=== PATIENT | female | born 1945 | race Caucasian/White ===

== ENCOUNTER → 2017-02-16 | Outpatient (REF) | payer MEDICARE ==
[2017-02-16 13:15] LABS: ALBUMIN 3.7 GM/DL (3.2-5.2); ALBUMIN/GLOBULIN RATIO 1.12 (1.00-1.93); BILIRUBIN,TOTAL 0.4 MG/DL (0.2-1.0); CALCIUM LEVEL 8.5 MG/DL (8.8-10.2); CREATININE FOR GFR 0.98 MG/DL (0.55-1.02); GLOMERULAR FILTRATION RATE 59.6 (>39); POTASSIUM SERUM 4.6 MEQ/L (3.5-5.1)
== END ==
LOC: M SFHCADAM 07:48
PROVIDERS: ATTEND Physician Assistant Medical
DX: E78.2 Mixed hyperlipidemia (principal); E03.9 Hypothyroidism, unspecified

== ENCOUNTER → 2018-07-26 | Outpatient (REF) | payer MEDICARE ==
[2018-07-26 13:55] LABS: BASO # 0.1 10^3/uL (0.0-0.2); BASO % 0.8 % (0.0-1.0); EOS # 0.6 10^3/uL (0.0-0.50); EOS % 7.4 % (0.0-3.0); HEMATOCRIT 42.3 % (36.0-47.0); HEMOGLOBIN 13.7 g/dl (12.0-15.5); IMMATURE GRANULOCYTE % 0.1 % (0-3.0); LYMPH # 2.2 10^3/uL (1.5-4.5); LYMPH % 29.7 % (24.0-44.0); MEAN CORPUSCULAR HEMOGLOBIN 29.6 pg (27.0-33.0); MEAN CORPUSCULAR HGB CONC 32.4 g/dl (32.0-36.5); MEAN CORPUSCULAR VOLUME 91.4 fl (80.0-96.0); MONO # 0.6 10^3/uL (0.0-0.8); MONO % 8.1 % (0.0-5.0); NEUTROPHILS # 4.1 10^3/uL (1.8-7.7); NEUTROPHILS % 53.9 % (36.0-66.0); PLATELET COUNT, AUTOMATED 304 10^3/uL (150-450); RED BLOOD COUNT 4.63 10^6/uL (4.00-5.40); RED CELL DISTRIBUTION WIDTH 12.8 % (11.5-14.5); WHITE BLOOD COUNT 7.6 10^3/uL (4.0-10.0)
[2018-07-26 19:51] LABS: ALBUMIN 3.6 GM/DL (3.2-5.2); ALBUMIN/GLOBULIN RATIO 0.97 (1.00-1.93); ALKALINE PHOSPHATASE 111 U/L (45-117); ALT/SGPT 22 U/L (12-78); ANION GAP 8 MEQ/L (8-16); AST/SGOT 15 U/L (7-37); BILIRUBIN,TOTAL 0.5 MG/DL (0.2-1.0); BLOOD UREA NITROGEN 19 MG/DL (7-18); CALCIUM LEVEL 9.2 MG/DL (8.8-10.2); CARBON DIOXIDE LEVEL 30 MEQ/L (21-32); CHLORIDE LEVEL 103 MEQ/L (98-107); CHOLESTEROL LEVEL 246 MG/DL (<200); CHOLESTEROL RISK RATIO 4.241 (<5); CREATININE FOR GFR 0.94 MG/DL (0.55-1.30); FREE T4 0.89 NG/DL (0.76-1.46); GLOMERULAR FILTRATION RATE > 60.0 (>39); GLUCOSE, FASTING 80 MG/DL (70-100); HDL CHOLESTEROL 58 MG/DL (>40); LDL CHOLESTEROL 158 MG/DL (<100); NON-HDL-C 188 MG/DL; SODIUM LEVEL 141 MEQ/L (136-145); TOTAL PROTEIN 7.3 GM/DL (6.4-8.2); TRIGLYCERIDES LEVEL 151 MG/DL (<150)
== END ==
LOC: M SFHCADAM 08:04
DX: E78.2 Mixed hyperlipidemia (principal); E03.9 Hypothyroidism, unspecified; Z87.891 Personal history of nicotine dependence; E66.09 Other obesity due to excess calories; F41.1 Generalized anxiety disorder; I10 Essential (primary) hypertension
CPT/HCPCS: 84443

== ENCOUNTER → 2019-07-18 | Outpatient (REF) | payer MEDICARE ==
[2019-07-18 13:02] LABS: BASO # 0.1 10^3/uL (0.0-0.2); BASO % 0.7 % (0.0-1.0); EOS # 0.3 10^3/uL (0.0-0.5); EOS % 3.3 % (0.0-3.0); HEMATOCRIT 39.8 % (36.0-47.0); HEMOGLOBIN 12.9 g/dl (12.0-15.5); LYMPH # 2.1 10^3/uL (1.5-5.0); LYMPH % 28.3 % (24.0-44.0); MEAN CORPUSCULAR HEMOGLOBIN 29.7 pg (27.0-33.0); MEAN CORPUSCULAR HGB CONC 32.4 g/dl (32.0-36.5); MEAN CORPUSCULAR VOLUME 91.7 fl (80.0-96.0); MONO # 0.5 10^3/uL (0.0-0.8); MONO % 6.4 % (0.0-5.0); NEUTROPHILS # 4.6 10^3/uL (1.5-8.5); NEUTROPHILS % 60.9 % (36.0-66.0); PLATELET COUNT, AUTOMATED 305 10^3/uL (150-450); RED BLOOD COUNT 4.34 10^6/uL (4.00-5.40); WHITE BLOOD COUNT 7.5 10^3/uL (4.0-10.0)
[2019-07-18 13:37] LABS: ALBUMIN 3.9 GM/DL (3.2-5.2); BILIRUBIN,TOTAL 0.5 MG/DL (0.2-1.0); CALCIUM LEVEL 9.3 MG/DL (8.8-10.2); CHOLESTEROL RISK RATIO 3.582 (<5); CREATININE FOR GFR 1.4 MG/DL (0.55-1.30); FREE T4 1.06 NG/DL (0.76-1.46); GLOMERULAR FILTRATION RATE 39.2 (>39); POTASSIUM SERUM 4.3 MEQ/L (3.5-5.1); THYROID STIMULATING HORMONE 3.58 uIU/ML (0.358-3.740); TOTAL PROTEIN 7.7 GM/DL (6.4-8.2)
== END ==
LOC: M SFHCADAM 07:55
PROVIDERS: ATTEND Physician Assistant Medical
DX: E78.2 Mixed hyperlipidemia (principal); E03.9 Hypothyroidism, unspecified

== ENCOUNTER → 2019-07-25 | Outpatient (REF) | payer MEDICARE ==
[2019-07-25 12:58] LABS: CALCIUM LEVEL 9.3 MG/DL (8.8-10.2); CREATININE FOR GFR 1.43 MG/DL (0.55-1.30); GLOMERULAR FILTRATION RATE 38.3 (>39); POTASSIUM SERUM 4.8 MEQ/L (3.5-5.1)
== END ==
LOC: M SFHCADAM 08:31
PROVIDERS: ATTEND Physician Assistant Medical
DX: E78.2 Mixed hyperlipidemia (principal); N28.9 Disorder of kidney and ureter, unspecified
CPT/HCPCS: 80048; G0463

== ENCOUNTER → 2019-07-31 | Outpatient (REF) | payer MEDICARE ==
[2019-07-31 13:33] LABS: AMORPHOUS SEDIMENT SMALL (NEGATIVE); APPEARANCE, URINE CLEAR (CLEAR); BACTERIA, URINE AUTO NEGATIVE (NEGATIVE); BILIRUBIN, URINE AUTO NEGATIVE (NEGATIVE); BLOOD, URINE BLOOD 2+ (NEGATIVE); COLOR, URINE YELLOW (YELLOW); GLUCOSE, URINE (UA) AUTO NEGATIVE (NEGATIVE); KETONE, URINE AUTO NEGATIVE (NEGATIVE); LEUKOCYTE ESTERASE, URINE AUTO 1+ (NEGATIVE); NITRITE, URINE AUTO NEGATIVE (NEGATIVE); PROTEIN, URINE AUTO NEGATIVE (NEGATIVE); RBC, URINE AUTO 2 /HPF (0-3); SPECIFIC GRAVITY URINE AUTO 1.014 (1.002-1.035); SQUAMOUS EPITHELIAL CELL UR AU 1 /HPF (0-6); UROBILINOGEN, URINE AUTO 0.2 mg/dL (0.0-2.0); WBC, URINE AUTO 4 /HPF (0-3)
== END ==
LOC: M SFHCADAM 12:38
PROVIDERS: ATTEND Physician Assistant Medical
DX: N18.3 Chronic kidney disease, stage 3 (moderate) (principal); R31.29 Other microscopic hematuria

== ENCOUNTER → 2019-08-07 | Outpatient (CLI) | payer MEDICARE ==
--- NOTE | 2019-08-07 11:27 | REP ---
Renal ultrasound for evaluation of stage III chronic renal disease: There are no comparisons. The right kidney measures 10.4 x 5.0 x 5.0 cm. The left kidney measures 10.5 x 5.2 x 5.1 cm. The kidneys are normal size. Renal cortical echogenicity is normal bilaterally. There are no solid or cystic renal masses on the right on the left. There is right hydronephrosis. There is no left hydronephrosis. Bladder ultrasound: Color Doppler assessment identifies the left ureteral jet. The right ureteral jet cannot be identified. Impression: Right hydronephrosis. The right ureteral jet into the bladder cannot be identified. The findings suggest a right ureteral obstruction. Electronically Signed by Arnulfo Peres MD 08/07/2019 11:18 A
== END ==
LOC: M RAD 10:24
PROVIDERS: ATTEND Physician Assistant Medical
DX: N18.3 Chronic kidney disease, stage 3 (moderate) (principal)

== ENCOUNTER → 2019-08-10 | Outpatient (CLI) | payer MEDICARE ==
[~2019-08-10] MED LIST: HYDR1CAP25 PO; LEVO50TA5 PO; ZOCO40TA PO
[2019-08-10 13:59] LABS: CALCIUM LEVEL 9.1 MG/DL (8.8-10.2); CREATININE FOR GFR 1.35 MG/DL (0.55-1.30); GLOMERULAR FILTRATION RATE 40.9 (>39); POTASSIUM SERUM 4.4 MEQ/L (3.5-5.1)
== END ==
LOC: M SMT 09:53
PROVIDERS: ATTEND Nurse Practitioner Women's Health
DX: N13.30 Unspecified hydronephrosis (principal)
CPT/HCPCS: 36415; 80048; G0463

== ENCOUNTER → 2019-08-14 | Outpatient (CLI) | payer MEDICARE ==
[~2019-08-14] MED LIST changes: -HYDR1CAP25 PO; +ISOVUE-370 76% 100ML VIAL (Q9967) As Ordered ONE; -LEVO50TA5 PO; -ZOCO40TA PO
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
== END ==
LOC: M RAD 07:21
PROVIDERS: ATTEND Nurse Practitioner Women's Health
DX: N39.0 Urinary tract infection, site not specified (principal); N13.0 Hydronephrosis with ureteropelvic junction obstruction
CPT/HCPCS: 74178; Q9967

== ENCOUNTER → 2019-08-17 | Outpatient (REF) | payer MEDICARE ==
[~2019-08-17] MED LIST changes: +HYDR1CAP25 PO; -ISOVUE-370 76% 100ML VIAL (Q9967) As Ordered ONE; +LEVO50TA5 PO; +ZOCO40TA PO
[2019-08-17 15:12] LABS: APPEARANCE, URINE HAZY (CLEAR); BACTERIA, URINE AUTO 1+ (NEGATIVE); BILIRUBIN, URINE AUTO NEGATIVE (NEGATIVE); BLOOD, URINE BLOOD 2+ (NEGATIVE); COLOR, URINE YELLOW (YELLOW); GLUCOSE, URINE (UA) AUTO NEGATIVE (NEGATIVE); KETONE, URINE AUTO NEGATIVE (NEGATIVE); LEUKOCYTE ESTERASE, URINE AUTO 2+ (NEGATIVE); MUCUS, URINE SMALL (NEGATIVE); NITRITE, URINE AUTO NEGATIVE (NEGATIVE); PROTEIN, URINE AUTO NEGATIVE (NEGATIVE); RBC, URINE AUTO 2 /HPF (0-3); SPECIFIC GRAVITY URINE AUTO 1.004 (1.002-1.035); SQUAMOUS EPITHELIAL CELL UR AU 0 /HPF (0-6); UROBILINOGEN, URINE AUTO 0.2 mg/dL (0.0-2.0); WBC, URINE AUTO 1 /HPF (0-3)
== END ==
LOC: M SMT 12:09
PROVIDERS: ATTEND Nurse Practitioner Women's Health
DX: N39.0 Urinary tract infection, site not specified (principal); N13.30 Unspecified hydronephrosis; R19.00 Intra-abdominal and pelvic swelling, mass and lump, unspecified site
CPT/HCPCS: 81001; 87086; 88108; G0463

== ENCOUNTER → 2019-08-24 | Outpatient (REF) | payer MEDICARE ==
[2019-08-24 10:52] LABS: INR 1.02; PROTHROMBIN TIME 13.1 SECONDS (11.8-14.0)
== END ==
LOC: M LABDRWAD 09:42
PROVIDERS: ATTEND Nurse Practitioner Women's Health
DX: Z01.812 Encounter for preprocedural laboratory examination (principal); R19.00 Intra-abdominal and pelvic swelling, mass and lump, unspecified site; N13.30 Unspecified hydronephrosis

== ENCOUNTER → 2019-09-04 | Outpatient (CLI) | payer MEDICARE ==
[~2019-09-04] MED LIST changes: +LIDOCAINE 1% MDV 20ML VIAL As Ordered ONE
[2019-09-04 13:26] VITALS: BP 238/108
--- NOTE | 2019-09-04 16:58 | REP ---
CT-GUIDED RIGHT RETROPERITONEAL MASS BIOPSY The procedure was performed under the direct supervision of Dr. Osborn. 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 The risks and benefits of the procedure were explained to the patient and informed consent was obtained. The right retroperitoneal mass was localized using CT guidance. The skin was prepped and draped in a sterile fashion. 1% lidocaine was used as a local anesthetic. Using CT guidance 19/20 gauge coaxial needle biopsy system was inserted and advanced into the mass. Nine core biopsy samples were obtained and sent to lab. The patient tolerated the procedure well and there were no immediate complications. After the appropriate amount of monitored convalescence the patient was discharged from the department. Electronically Signed by TATY Shelton 09/04/2019 04:45 P Electronically Signed by Arnulfo Osborn MD 09/04/2019 04:49 P
== END ==
LOC: M IRPRO 11:39
PROVIDERS: ATTEND Nurse Practitioner Women's Health
DX: C78.6 Secondary malignant neoplasm of retroperitoneum and peritoneum (principal)

== ENCOUNTER → 2019-09-05 | Outpatient (CLI) | payer MEDICARE ==
[~2019-09-05] MED LIST changes: -LIDOCAINE 1% MDV 20ML VIAL As Ordered ONE
[2019-09-05 14:49] LABS: CREATININE FOR GFR 1.24 MG/DL (0.55-1.30); GLOMERULAR FILTRATION RATE 45.1 (>39); POTASSIUM SERUM 4.2 MEQ/L (3.5-5.1)
[2019-09-05 14:53] LABS: HEMATOCRIT 41.2 % (36.0-47.0); HEMOGLOBIN 12.8 g/dl (12.0-15.5); MEAN CORPUSCULAR HEMOGLOBIN 29.2 pg (27.0-33.0); MEAN CORPUSCULAR HGB CONC 31.1 g/dl (32.0-36.5); MEAN CORPUSCULAR VOLUME 93.8 fl (80.0-96.0); PLATELET COUNT, AUTOMATED 271 10^3/uL (150-450); RED BLOOD COUNT 4.39 10^6/uL (4.00-5.40); WHITE BLOOD COUNT 8.4 10^3/uL (4.0-10.0)
--- NOTE | 2019-09-05 15:20 | REPPI ---
Clinical: Preoperative assessment . Comparison: 01/17/2015 . Technique: PA and lateral. Findings: The mediastinum and cardiac silhouette are normal. The lung bell are clear and without acute consolidation, effusion, or pneumothorax. Lateral view demonstrates blunting to the posterior diaphragmatic recess which is nonspecific and may be secondary to positioning rather than actual pleural reaction. The skeletal structures are intact and normal. Impression: 1. No focal consolidation. 2. As above. Electronically Signed by Randy Wheeler MD 09/05/2019 10:35 A
== END ==
LOC: M PLALAB 10:11 → M PLAIMG 10:11
PROVIDERS: ATTEND Nurse Practitioner Women's Health
DX: Z01.812 Encounter for preprocedural laboratory examination (principal); R19.00 Intra-abdominal and pelvic swelling, mass and lump, unspecified site; N13.30 Unspecified hydronephrosis; N39.0 Urinary tract infection, site not specified
CPT/HCPCS: 36415; 71046; 80048; 85027; 87086; 93005; G0463

== ENCOUNTER 2019-09-13 09:06 | Day surgery (SDC) | payer MEDICARE ==
[~2019-09-13] VITALS: Ht 170.2 cm; Wt 81.2 kg
[~2019-09-13 09:06] MED LIST changes: +LR 1,000 ML IV ONE; +ceFAZolin SOD 2 GM in IV 1 EA IV ONE
[2019-09-13] MEDS ORDERED: LIDOCAINE 2% INJ 100 MG/5 ML SDV (FOR ANES.) As Ordered ONE (09:25)
[2019-09-13] MEDS ORDERED: ONDANSETRON 4MG/2ML VIAL (J2405) As Ordered ONE (09:25)
[2019-09-13] MEDS ORDERED: MIDAZOLAM INJ 2 MG/2 ML VIAL (J2250) As Ordered ONE (09:25)
[2019-09-13] MEDS ORDERED: fentaNYL 100 MCG/2 ML INJECTION (J3010) As Ordered ONE (09:25)
[2019-09-13] MEDS ORDERED: PROPOFOL 200 MG/20 ML VIAL As Ordered ONE (09:25)
[2019-09-13] MEDS ORDERED: dexameTHASONE 4 MG/ML 1ML VIAL (J1100) As Ordered ONE (09:25)
[2019-09-13] MEDS ORDERED: CONRAY-60 60% 50ML VIAL (Q9961) As Ordered ONE (10:09)
[2019-09-13] MEDS ORDERED: ACETAMINOPHEN 1000MG 100ML IV BTL (OFIRMEV) (J0131 PER 10MG) As Ordered ONE (10:46)
[2019-09-13] MEDS ORDERED: KETOROLAC 60 MG/2 ML VIAL (J1885) As Ordered ONE (10:48)
[2019-09-13] MEDS ORDERED: hydrALAZINE INJ 20 MG/ML VIAL As Ordered ONE (11:14)
[2019-09-13] MEDS ORDERED: ONDANSETRON 4MG/2ML VIAL (J2405) IV PRN (12:15)
[2019-09-13] MEDS ORDERED: LR 1,000 ML IV SCH (12:15)
[2019-09-13] MEDS ORDERED: ACETAMINOPHEN TAB 650MG DOSE (2X325MG) PO PRN (12:15)
[2019-09-13] MEDS ORDERED: fentaNYL 100 MCG/2 ML INJECTION (J3010) IV PRN (12:15)
[2019-09-13] MEDS ORDERED: PERCOCET 5MG/325MG TAB PO PRN (12:15)
[2019-09-13] MEDS ORDERED: METOCLOPRAMIDE INJ 10MG/2ML VIAL (J2765) IV PRN (12:15)
[2019-09-13 13:10] VITALS: BP 170/84
--- NOTE | 2019-09-13 13:38 | REP ---
C-ARM VIEW ABDOMEN: C-arm view of the abdomen is performed. There is a right ureteral stent. The proximal end is coiled in the right renal pelvis, which is moderately dilated with the right pelvocaliceal system partially opacified with contrast maternal. The distal end of the right ureteral stent is coiled in the urinary bladder. 1 minute 31 seconds fluoroscopy time is utilized. Unreviewed
--- NOTE | 2019-09-13 14:29 | RO ---
DATE OF PROCEDURE: 09/13/2019 PREPROCEDURE DIAGNOSIS: Right hydronephrosis. POSTPROCEDURE DIAGNOSIS: Right hydronephrosis. PROCEDURE: Cystoscopy, right ureteroscopy with balloon dilation, right retrograde pyelogram with intraoperative interpreted images, right ureteral stent placement. SURGEON: Dr. Rasta Santiago. CLAIM REP: None. ANESTHESIA: General. OPERATIVE INDICATIONS: This is a 74-year-old female who on recent CT scan was found to have a right hydronephrosis, which appeared to be due to a retroperitoneal lesion compressing the proximal right ureter. It is not possible to determine whether or not this is something extending out of the right ureteral lumen. She was brought to the operating room today to investigate this and then place a stent. DESCRIPTION OF PROCEDURE: The patient was brought to the operating room and general anesthesia induced. Prophylactic antibiotics were infused. She was then placed in the dorsal lithotomy position and prepped and draped in the usual sterile fashion. A rigid cystoscope was inserted in through the urethral meatus and advanced into the bladder. Once inside the bladder, a guidewire was advanced through the right collecting system. I then advanced the ureteral access sheath up the right collecting system. I went up the access sheath with a flexible ureteroscope and within the proximal ureter the lumen was significantly narrowed. I could not advance the scope past this narrow area. I therefore, shot a retrograde pyelogram and contrast was able to get into the right kidney and the kidney was severely dilated. At this point, I withdrew the ureteroscope after advancing another wire into the collecting system. I then advanced a balloon dilator over the wire up to the level of the narrowing. The balloon was then inflated to 15 Congolese in this area. The balloon was left up for approximately minute each time. The balloon was then removed and the ureteroscope was advanced up the right collecting system. The proximal ureter was examined and of note, no lesions were seen inside the ureter. I was able to get the ureteroscope into the right kidney. It was examined and no tumors were seen at that right kidney. I then withdrew the ureteroscope back down the proximal ureter and once again, no tumors were seen. This indicated that the narrowing of the right ureter is due to extrinsic compression. At this point, the ureteroscope was removed along with the ureteral access sheath. I then utilized the wire to advance the sheath for a metallic Resonance stent. I then advanced a 6 Congolese x 22 cm metallic Resonance stent up into the right collecting system. The push was used to advance the proximal end of the stent into the right renal pelvis. The sheath was then removed and then there were adequate curls of the Resonance stent in the right renal pelvis and in the bladder. The bladder was then emptied of all fluids. This tamez the conclusion of the procedure. The patient was then taken out of the dorsal lithotomy position, awakened from anesthesia and transported to the recovery room in stable condition. ESTIMATED BLOOD LOSS: 5 mL. COMPLICATIONS: None. SPECIMENS: None. PLAN: We still need to determine what this lesion is in the retroperitoneum compressing the ureter. I explained that this is a malignant lesion. We will have to send her back to radiology with an attempt at another CT-guided biopsy of the lesion. Until then, we will keep a stent in to keep the kidney drained. MIREYA
== END 2019-09-13 13:30 | disposition home or self-care (01) ==
LOC: M SDC 09:06
PROVIDERS: ATTEND Urology
DX: N13.30 Unspecified hydronephrosis (principal); E78.49 Other hyperlipidemia; E78.00 Pure hypercholesterolemia, unspecified; E03.9 Hypothyroidism, unspecified; Z79.899 Other long term (current) drug therapy
CPT/HCPCS: 52332; 52341; 74420; C1769; C1894; J0131; J0690; J1100; J2250; J2405; J3010; Q9961

== ENCOUNTER → 2019-09-29 | Outpatient (REF) | payer MEDICARE ==
[~2019-09-29] MED LIST changes: -LR 1,000 ML IV ONE; -ceFAZolin SOD 2 GM in IV 1 EA IV ONE
[2019-09-29 12:28] LABS: INR 0.95; PARTIAL THROMBOPLASTIN TIME 29.5 SECONDS (25.0-38.4); PROTHROMBIN TIME 12.4 SECONDS (11.8-14.0)
== END ==
LOC: M LABDRWAD 11:59
PROVIDERS: ATTEND Urology
DX: Z01.818 Encounter for other preprocedural examination (principal); R19.00 Intra-abdominal and pelvic swelling, mass and lump, unspecified site

== ENCOUNTER → 2019-10-02 | Outpatient (CLI) | payer MEDICARE ==
[~2019-10-02] MED LIST changes: +LIDOCAINE 1% MDV 20ML VIAL As Ordered ONE
[2019-10-02 10:35] VITALS: BP_DIAS 80
[2019-10-02 10:56] VITALS: BP_SYST 152
--- NOTE | 2019-10-02 18:28 | REP ---
CT-guided retroperitoneal biopsy The procedure is performed by TATY Saldana, under the direct supervision of Dr. Vazquez. The risks and benefits of the procedure were explained to the patient and informed consent was obtained both orally and written. Directly prior to the start of the procedure, a formal timeout was done in the exam room. The right retroperitoneal mass was localized using CT guidance. Skin was prepped and draped in the usual sterile fashion. 8 ml of 1% lidocaine 10 mg/ml was used as a local anesthetic. Using CT guidance a 19/20 gauge coaxial needle biopsy system was inserted and advanced into the nodule. 6 core biopsy samples were obtained and sent to the lab. CT images obtained directly after the biopsy show no evidence of hematoma. After the appropriate amount of monitored convalescence the patient was discharged from the department. Reviewed by TATY Barros 10/02/2019 12:16 P Electronically Signed by Phillip Vazquez MD 10/02/2019 06:19 P
== END ==
LOC: M IRPRO 08:13
PROVIDERS: ATTEND Urology
DX: C48.0 Malignant neoplasm of retroperitoneum (principal); C67.9 Malignant neoplasm of bladder, unspecified

== ENCOUNTER → 2019-10-31 | Outpatient (CLI) | payer MEDICARE ==
[~2019-10-31] MED LIST changes: +GASTROGRAFIN SOLUTION 30ML (Q9963) As Ordered ONE; +ISOVUE-370 76% 100ML VIAL (Q9967) As Ordered ONE; -LIDOCAINE 1% MDV 20ML VIAL As Ordered ONE
--- NOTE | 2019-11-01 09:15 | REP ---
CT CHEST WITH IV CONTRAST: TECHNIQUE: Axial contrast enhanced images from the thoracic inlet to the upper abdomen using 100 mL Isovue 370 intravenous contrast material with multiplanar reformations. There is mild diffuse interstitial fibrosis bilaterally. There is a band of fibroatelectasis of the inferior lingula. There is a calcified granuloma in the left perihilar region. No suspicious pulmonary nodule is seen. Scattered subcentimeter axillary, mediastinal, and hilar lymph nodes are present without suspicious adenopathy. The heart is normal in size. There is no pleural or pericardial effusion. There are degenerative changes of the spine. IMPRESSION: No suspicious pulmonary nodule or adenopathy. Electronically Signed by Arnulfo Osborn MD 11/01/2019 10:50 P
--- NOTE | 2019-11-01 09:22 | REP ---
CT ABDOMEN AND PELVIS WITH ORAL AND IV CONTRAST, CT ABDOMEN WITHOUT IV CONTRAST: CT abdomen and pelvis performed with oral and IV contrast, with the intravenous administration of 100 mL of Isovue 370. Pre-IV contrast CT of the abdomen is also performed. Sagittal and coronal reconstruction images are performed. Liver demonstrates no mass. The gallbladder demonstrates on wall thickening. Spleen is normal in size with no intrinsic abnormality. The adrenal glands are normal. The pancreas is unremarkable. The left kidney is unremarkable. No renal stones are seen. Right kidney demonstrates some degree of atrophy. There is a persistent nephrogram on post contrast images. Previously noted right hydronephrosis has essentially resolved. There is a right ureteral stent in place, the proximal end is coiled in the right renal pelvis and the distal end is coiled in the urinary bladder. Ill-defined enhancing soft tissue again is seen in the right retroperitoneum just inferior to the right kidney. This is essentially unchanged. No significant adenopathy is seen. There is moderate atherosclerotic calcification of the abdominal aorta without aneurysm. There is no bowel wall thickening. There is no free air or free fluid. The appendix is normal. No pelvic mass is seen. Urinary bladder appears unremarkable. There are degenerative changes of the spine. IMPRESSION: No significant change in the ill-defined enhancing soft tissue in the right retroperitoneum just inferior to the level of the right kidney. Right ureteral stent has been placed. There is resolution of the previously noted right hydronephrosis. There is right renal atrophy and a persistent nephrogram of right kidney. Electronically Signed by Arnulfo Osborn MD 11/01/2019 10:51 P
== END ==
LOC: M RAD 14:51
PROVIDERS: ATTEND Internal Medicine Hematology & Oncology
DX: C67.5 Malignant neoplasm of bladder neck (principal); J84.10 Pulmonary fibrosis, unspecified; Z96.0 Presence of urogenital implants; N26.1 Atrophy of kidney (terminal)
CPT/HCPCS: 71260; 74178; Q9963; Q9967

== ENCOUNTER → 2019-11-01 | Outpatient (CLI) | payer MEDICARE ==
[~2019-11-01] MED LIST changes: -GASTROGRAFIN SOLUTION 30ML (Q9963) As Ordered ONE; -ISOVUE-370 76% 100ML VIAL (Q9967) As Ordered ONE
--- NOTE | 2019-11-01 19:39 | REP ---
Whole body PET CT scan for staging bladder carcinoma: There are some studies are are the chest CT of 10/31/2027 and the abdomen/pelvis CT of 10/31/2019 and the abdomen/pelvis CT dated 08/14/2019. On both of the comparison abdomen/pelvis CTs there is an ill-defined soft tissue mass-like density in the periaortic area along to the right of the aorta . By CT the abdominal vena cava appears to be incorporated into the soft tissue mass-like density. The iliac and femoral veins appear dilated. Whole-body scanning is performed from skull base to the upper thighs. Neck and supraclavicular areas: There are no hypermetabolic foci. Chest: There are no hypermetabolic foci. Abdomen, pelvis and upper thighs: The periaortic soft tissue density is hypermetabolic with a maximum standard uptake value of 5.4, however, some of this uptake may be vascular uptake in the vena cava. The right kidney is atrophic, similar to both prior abdomen/pelvis CT scans. There is an right ureteral stent. The hydronephrosis identified on 08/14/2019 is no longer present. The there are no other hypermetabolic foci. Evaluation of the bladder wall is obscured by the high concentration of radiotracer within the bladder lumen. Impression: The known periaortic soft tissue mass to the right of the aorta demonstrates hypermetabolic uptake. The vena cava is incorporated into this mass, therefore, some of this uptake may be vascular uptake in the vena cava. The iliac and femoral arteries appear to be dilated. There are no other hypermetabolic foci. Evaluation of the bladder wall is insensitive because of the high concentration of radiotracer in the bladder lumen. The study is performed with 9.26 mCi of F 18 FDG. Electronically Signed by Arnulfo Peres MD 11/01/2019 07:30 P
== END ==
LOC: M PLARAD 08:16
PROVIDERS: ATTEND Internal Medicine Hematology & Oncology
DX: C67.5 Malignant neoplasm of bladder neck (principal)
CPT/HCPCS: 78815; A9552

== ENCOUNTER → 2019-11-15 | Outpatient (CLI) | payer MEDICARE ==
[~2019-11-15] MED LIST changes: +ISOVUE-300 61% 50ML VIAL (Q9967) As Ordered ONE; +LIDOCAINE 1% MDV 20ML VIAL As Ordered ONE; +MIDAZOLAM INJ 2 MG/2 ML VIAL (J2250) As Ordered ONE; +ONDA8TAB10 PO; +PROC10TA4 PO; +ceFAZolin 1GM INJ (J0690 PER 500MG) As Ordered ONE; +diphenhydrAMINE INJ 50MG/ML VIAL (J1200) As Ordered ONE; +fentaNYL 100 MCG/2 ML INJECTION (J3010) As Ordered ONE
--- NOTE | 2019-11-15 10:24 | IRHP ---
[facility] IR Pre-Procedure H & P General Date of Service: Nov 15, 2019 Procedure: Same Day Surgery Interval History and Physical I have seen the patient and reviewed last H & P performed within 30 days. There is no significant interval change. History of Present Illness Chief Complaint The patient is a 74-year-old female admitted with a reason for visit of Urothelial Ca. PRE-PROCEDURE DIAGNOSIS: urothelial ca HEART: normal rate. LUNGS: normal breathing at rest. ASA Classification ASA Classification: III-Severe systemic dis. Mallampati Score: II NPO: Yes Problems with prior sedation: No Obstructive Sleep Apnea: No Plan moderate sedation Allergies Coded Allergies: No Known Drug Allergies (Verified Allergy, Unknown, 09/13/19) Home Medications Scheduled Hydroxyzine Pamoate (Hydroxyzine Pamoate), 25 MG PO DAILYPRN, (Reported) Levothyroxine Sodium (Levothyroxine Sodium), 50 MCG PO DAILY, (Reported) Ondansetron HCl (Ondansetron HCl), 8 MG PO BID Simvastatin (Zocor), 40 MG PO DAILY, (Reported) Scheduled PRN Prochlorperazine Maleate (Prochlorperazine Maleate), 10 MG PO Q4-6HP PRN for NAUSEA OR VOMITING VS, I&O, 24H, Fishbone Vital Signs/I&O Vital Signs Date Time Temp Pulse Resp B/P (MAP) Pulse Ox O2 Delivery O2 Flow Rate FiO2 11/15/19 10:00 72 18 100 Nasal Cannula 2 11/15/19 08:39 97.5 SADE MORRIS MD Nov 15, 2019 10:24
[2019-11-15 11:12] VITALS: BP 138/80
--- NOTE | 2019-11-15 13:28 | POST-OPPD ---
Postoperative Procedure Note Date Of Procedure: Nov 15, 2019 Time Of Procedure: 13:27 PREOPERATIVE DIAGNOSIS: urethral cancer POSTOPERATIVE DIAGNOSIS: same FINDINGS: patent right IJ PROCEDURE: port placed. ready to use SURGEON: gavin ANESTHESIA: mod sed ESTIMATED BLOOD LOSS: < 5 ml COMPLICATIONS: none POSTOPERATIVE CONDITION: stable SADE MORRIS MD Nov 15, 2019 13:28
--- NOTE | 2019-11-16 14:57 | REP ---
IR Ultrasound and fluoroscopy-guided port placement. IR Ultrasound of the neck. IR Moderate sedation. Clinical information: Bladder cancer. Physician: Dr. Harrington. Procedure: The patient was advised of the benefits, risks, and alternatives of the procedure and informed consent was obtained. A time-out was performed with verification of the patient's name, MRN, site of procedure and type of procedure to be performed. The patient was positioned in the supine position on the angiographic table. The site was prepped and draped in the usual sterile fashion. Moderate sedation was performed by the physician including the presence of an independent trained observer who assisted and monitored the patient's level of consciousness and physiologic status. Following the administration of fentanyl and Versed, the physician spent 45 minutes of continuous face to face time with the patient. Ultrasound of the neck reveals a patent and compressible right internal jugular vein. A marketing database coordinator radiograph reveals no gross abnormality. The neck and anterior chest wall were anesthetized with lidocaine. The right internal jugular vein was accessed using a microintroducer needle under ultrasound guidance, via a lateral approach. An 018 wire was advanced into the superior vena cava, the needle was removed and a microsheath was placed. An Amplatz wire was then passed into the inferior vena cava. An incision at the internal jugular vein access site and anterior chest wall were made using a scalpel. An incision was made at the anterior chest wall. A small pocket was created using a combination of blunt and sharp dissection. A tunneling device was then used to pass the catheter from the pocket to the neck puncture site. An 8-[employer] Angio dynamics Smart power port was then positioned in the pocket. The catheter was then measured and cut. The introducer sheath was exchanged for a peel-away sheath. The catheter was passed through the peel-away sheath into the internal jugular vein and the peel-away sheath was removed. The port tip was positioned at the cavoatrial junction. The port was then accessed with a Smith needle. The port flushes and aspirates well. The puncture site in the neck was closed. The chest wall incision was then closed with 2-0 Vicryl and 4-0 Monocryl. Glue and Steri-Strips were applied. A sterile dressing was then applied. The patient tolerated the procedure well and was returned to the PRU in stable condition. Estimated blood loss: <5 ml. Complications: None. Conclusion: 1. Successful placement of an 8-[employer] [place] Angio dynamics Smart power port via the right internal jugular vein. The port is ready for immediate use. 2. Patient to follow up in IR clinic in 2 weeks. Thank you for this referral. Electronically Signed by Juhi Harrington MD 11/16/2019 02:55 P
== END ==
LOC: M IRPRO 08:18
PROVIDERS: ATTEND Internal Medicine Hematology & Oncology
DX: C67.9 Malignant neoplasm of bladder, unspecified (principal); Z79.899 Other long term (current) drug therapy
CPT/HCPCS: 36591; 99152; 99153; C1769; C1788; C1894; J0690; J1200; J1642; J1644; J2250; J3010

== ENCOUNTER → 2019-11-28 | Outpatient (POV) | payer MEDICARE ==
[~2019-11-28] VITALS: Ht 170.2 cm; Wt 81.8 kg
[~2019-11-28] MED LIST changes: +CIPR-249 PO; -ISOVUE-300 61% 50ML VIAL (Q9967) As Ordered ONE; -LIDOCAINE 1% MDV 20ML VIAL As Ordered ONE; -MIDAZOLAM INJ 2 MG/2 ML VIAL (J2250) As Ordered ONE; -ceFAZolin 1GM INJ (J0690 PER 500MG) As Ordered ONE; -diphenhydrAMINE INJ 50MG/ML VIAL (J1200) As Ordered ONE; -fentaNYL 100 MCG/2 ML INJECTION (J3010) As Ordered ONE
[2019-11-28 08:50] VITALS: BP 151/64
--- NOTE | 2019-11-29 09:14 | IRPN ---
[facility] IR Progress Note IR Progress Note DATE: Nov 28, 2019 FOLLOW-UP: Doing well status post port placement. No pain, tenderness, discharge, fevers or chills. Port functioning well. ON EXAMINATION: Port site appears to be healing well. No redness, tenderness, fluctuance or discharge. IMPRESSION: Doing well status post port placement. Continue port care. No further follow-up scheduled unless initiated by patient and/or referring provider. Thank you for this referral Allergies Coded Allergies: No Known Drug Allergies (Verified Allergy, Unknown, 09/13/19) VS,Fishbone, I+O VS, Fishbone, I+O Vital Signs Date Time Temp Pulse Resp B/P (MAP) Pulse Ox O2 Delivery O2 Flow Rate FiO2 11/28/19 08:50 97.4 78 18 151/64 (93) 96 Room Air SADE MORRIS MD Nov 29, 2019 09:14
== END ==
LOC: M IRPOV 08:48
PROVIDERS: ATTEND Radiology Diagnostic Radiology
DX: Z45.2 Encounter for adjustment and management of vascular access device (principal)

== ENCOUNTER 2019-12-11 12:26 | Outpatient (CLI) | payer MEDICARE ==
[~2019-12-11] VITALS: Ht 167.6 cm; Wt 84.0 kg
[~2019-12-11 12:26] MED LIST changes: +SODIUM CHLORIDE 0.9% INJ 10 ML SYR IV SCH
[2019-12-11 12:35] VITALS: BP 142/89
[2019-12-11] MEDS ORDERED: NS 2,000 ML IV ONE (13:00)
[2019-12-11 15:35] VITALS: BP 145/83
== END 2019-12-11 15:35 | disposition home or self-care (01) ==
LOC: M INFU 12:26
PROVIDERS: ATTEND Internal Medicine Hematology & Oncology
DX: C67.9 Malignant neoplasm of bladder, unspecified (principal)
CPT/HCPCS: 96360; 96361; J1642

== ENCOUNTER 2019-12-13 10:11 | Outpatient (CLI) | payer MEDICARE ==
[~2019-12-13] VITALS: Ht 168.9 cm; Wt 84.0 kg
[~2019-12-13 10:11] MED LIST changes: -SODIUM CHLORIDE 0.9% INJ 10 ML SYR IV SCH
[2019-12-13 10:20] VITALS: BP 158/88
[2019-12-13] MEDS: NS 1,000 ML IV SCH ×2 (10:41→12:10)
[2019-12-13] MEDS ORDERED: SODIUM CHLORIDE 0.9% INJ 10 ML SYR IV ONE (12:00)
[2019-12-13 13:15] VITALS: BP 139/64
== END 2019-12-13 13:15 | disposition home or self-care (01) ==
LOC: M INFU 10:11
PROVIDERS: ATTEND Internal Medicine Hematology & Oncology
DX: C68.0 Malignant neoplasm of urethra (principal)
CPT/HCPCS: 96360; 96361; J1642

== ENCOUNTER 2019-12-15 09:08 | Outpatient (CLI) | payer MEDICARE ==
[~2019-12-15] VITALS: Ht 167.6 cm; Wt 84.0 kg
[~2019-12-15 09:08] MED LIST changes: +SODIUM CHLORIDE 0.9% INJ 10 ML SYR IV SCH
[2019-12-15 09:20] VITALS: BP 159/82
[2019-12-15] MEDS: NS 1,000 ML IV SCH ×2 (10:09→10:50)
[2019-12-15 11:54] VITALS: BP 115/67
== END 2019-12-15 11:55 | disposition home or self-care (01) ==
LOC: M INFU 09:08
PROVIDERS: ATTEND Internal Medicine Hematology & Oncology
DX: C68.0 Malignant neoplasm of urethra (principal)
CPT/HCPCS: 96360; 96361; J1642

== ENCOUNTER → 2020-01-11 | Outpatient (CLI) | payer MEDICARE ==
[~2020-01-11] MED LIST changes: +GASTROGRAFIN SOLUTION 30ML (Q9963) As Ordered ONE; +ISOVUE-370 76% 100ML VIAL (Q9967) As Ordered ONE; -SODIUM CHLORIDE 0.9% INJ 10 ML SYR IV SCH
--- NOTE | 2020-01-11 16:04 | REP ---
HISTORY: Urothelial carcinoma. COMPARISON: 10/31/2019, the latest prior. CONTRAST: 100 mL Isovue-370 The mediastinum and pulmonary mingo are stable. There is no evidence of a mass or adenopathy. There are no pleural or pericardial effusions. The imaged upper abdomen is essentially unchanged from the prior exam with the exception of visualization of the proximal portion of a renal collecting system stent on the right. For detailed description of the abdomen, please refer to the abdomen and pelvis CT report made same day. Bone window technique through the exam shows the osseous structures to be stable and intact. Evaluation of the lung bell shows stable biapical pleural parenchymal scarring. There are no significant changes from the prior exam. There are no new abnormal nodules, mass or opacities. IMPRESSION: Stable CT examination of the chest as described above. There is no evidence of acute disease. Electronically Signed by Elías Cheung DO 01/12/2020 08:34 A
--- NOTE | 2020-01-11 16:16 | REP ---
HISTORY: History of bladder carcinoma. COMPARISON: 10/31/2019, the latest prior. CONTRAST: 100 mL Isovue-370 FINDINGS: The liver, gallbladder, spleen, pancreas, adrenal glands and kidneys are unchanged. Note is again made of a right-sided double pigtail stent in the renal collecting system, the proximal portion is in the renal pelvis and the distal portion is in the urinary bladder. The small amount of enhancing soft tissue seen previously inferior to the inferior pole of the right kidney has for the most part completely resolved. Minimal inferior pole perinephric fatty infiltration is seen likely residual scar formation. The abdominal aorta and periaortic regions are within normal limits. No periaortic adenopathy has developed. Small stable periaortic lymph nodes are noted, status quo. There is no free fluid or free air in the abdomen. The bowel loops and their mesenteries are within normal limits. CT PELVIS: There is a moderate to large amount of content in the rectosigmoid vault. There is no pelvic mass or adenopathy. There is no free fluid or free air. Bone window technique throughout the examination shows the osseous structures to be stable and intact. IMPRESSION: Improved/resolved enhancing soft tissue inferior to the inferior pole of the right kidney as described above. There is no evidence of acute intra-abdominal or intrapelvic disease. Other findings as described above. Electronically Signed by Elías Cheung DO 01/12/2020 08:34 A
== END ==
LOC: M RAD 11:20
PROVIDERS: ATTEND Internal Medicine Hematology & Oncology
DX: C67.9 Malignant neoplasm of bladder, unspecified (principal)
CPT/HCPCS: 71260; 74178; J1642; Q9963; Q9967

== ENCOUNTER → 2020-05-06 | Outpatient (CLI) | payer MEDICARE ==
[~2020-05-06] MED LIST changes: -ISOVUE-370 76% 100ML VIAL (Q9967) As Ordered ONE; +ISOVUE-370 76% 100ML VIAL As Ordered ONE; +LISI10TA4 PO
--- NOTE | 2020-06-28 14:21 | REP ---
CT OF THE ABDOMEN AND PELVIS WITH IV AND BOWEL CONTRAST: COMPARISON: Abdomen and pelvis CT dated 01/11/20, abdomen and pelvis CT dated 10/31/19 and PET scan dated 11/01/19. HISTORY: The patient has history of bladder carcinoma and has a right ureteral stent in place. FINDINGS: On the 10/31/[address] and on the 11/01/19 PET scan, there was an enhancing retroperitoneal mass interposed between the aorta and lower pole of the right kidney. There was a right ureteral stent. This stent is still in place. The proximal pigtail of the stent is in the proximal right ureter at the UPJ. This is unchanged. The distal pigtail is in the bladder. This is unchanged. The previous retroperitoneal mass is no longer identified. There is no right hydronephrosis. There is chronic atrophy of the right kidney, unchanged from the comparison studies. There is a small ribbon of right renal cortex that enhances with IV contrast. The visualized lower lung bell are unremarkable. The hepatic parenchyma is homogeneous. The gallbladder and pancreas are unremarkable. The spleen is normal size and unremarkable. The adrenals are unremarkable. The left kidney is unremarkable. There is chronic right renal atrophy, as described. There is calcified atheroma in the abdominal aorta, unchanged. The aorta is otherwise unremarkable. There are periaortic nodes that have enlarged measuring 9 mm and 11 mm today. They measured 5 mm each previously. There is an aortocaval node measuring 7 mm today and measured 6 mm previously. . There is no mesenteric lymph node enlargement. No ascites. There is no bowel distention or obstruction. PELVIS: There is no focal or diffuse bladder wall thickening by CT. The distal pigtail of the right ureteral stent is in the bladder. No pelvic lymph node enlargement is identified. No ascites. The pelvic bowel loops are unremarkable. There are no lytic, blastic or destructive skeletal changes. There is degenerative disc disease throughout the lumbar spine, most advanced at L5-S1. IMPRESSION: The patient's previously identified retroperitoneal mass to the right of the abdominal aorta is no longer identified. There are periaortic nodes as described. No pelvic lymph node enlargement. No mesenteric lymph node enlargement. Right ureteral stent, as described. Chronic atrophy of the right kidney, as described. No renal masses. No skeletal lesions. No bladder wall thickening. MTDD
== END ==
LOC: M RAD 13:00
PROVIDERS: ATTEND Internal Medicine Hematology & Oncology
DX: C67.9 Malignant neoplasm of bladder, unspecified (principal); C77.9 Secondary and unspecified malignant neoplasm of lymph node, unspecified
CPT/HCPCS: 74177; J1642; Q9963; Q9967

== ENCOUNTER → 2020-08-05 | Outpatient (REF) | payer MEDICARE ==
[~2020-08-05] MED LIST changes: -GASTROGRAFIN SOLUTION 30ML (Q9963) As Ordered ONE; -ISOVUE-370 76% 100ML VIAL As Ordered ONE
[2020-08-05 12:37] LABS: BASO % 0.4 % (0.0-1.0); EOS # 0.3 10^3/uL (0.0-0.5); EOS % 3.5 % (0.0-3.0); HEMATOCRIT 38.3 % (36.0-47.0); LYMPH # 2.1 10^3/uL (1.5-5.0); LYMPH % 28.3 % (24.0-44.0); MEAN CORPUSCULAR HEMOGLOBIN 29.9 pg (27.0-33.0); MEAN CORPUSCULAR HGB CONC 31.3 g/dl (32.0-36.5); MEAN CORPUSCULAR VOLUME 95.3 fl (80.0-96.0); MONO # 0.8 10^3/uL (0.0-0.8); NEUTROPHILS # 4.2 10^3/uL (1.5-8.5); NEUTROPHILS % 56.5 % (36.0-66.0); PLATELET COUNT, AUTOMATED 280 10^3/uL (150-450); RED BLOOD COUNT 4.02 10^6/uL (4.00-5.40); WHITE BLOOD COUNT 7.5 10^3/uL (4.0-10.0)
[2020-08-05 13:29] LABS: CHOLESTEROL RISK RATIO 2.895 (<5)
== END ==
LOC: M SFHCADAM 07:40
PROVIDERS: ATTEND Physician Assistant Medical
DX: E78.2 Mixed hyperlipidemia (principal); I10 Essential (primary) hypertension; E03.9 Hypothyroidism, unspecified

== ENCOUNTER → 2020-08-26 | Outpatient (CLI) | payer MEDICARE ==
[~2020-08-26] MED LIST changes: +GASTROGRAFIN SOLUTION 30ML (Q9963) As Ordered ONE; +ISOVUE-370 76% 100ML VIAL As Ordered ONE
--- NOTE | 2020-08-26 15:18 | REP ---
INDICATION: UROTHELIAL CA COMPARISON: 01/11/2020 TECHNIQUE: Axial noncontrast images from the thoracic inlet to the upper abdomen with coronal and sagittal reformations. This CT examination was performed using the following dose reduction techniques: Automated exposure control, adjustment of mA and/or kv according to the patient's size, and use of iterative reconstruction technique. FINDINGS: Lung bell demonstrate chronic stable age-related interstitial changes along with lingular and minimal basilar scarring. Mild biapical scarring is also identified and stable. No acute consolidation, suspicious nodule, or mass lesion. No pleural effusion. No pneumothorax. Tracheobronchial tree is patent. No obvious adenopathy. Atherosclerotic changes to the thoracic aorta and coronary arteries again noted. No cardiomegaly or pericardial effusion. Musculoskeletal structures are intact and without acute osseous abnormality. IMPRESSION: Chronic stable changes. No evidence for acute mediastinal or pleuroparenchymal process. Specifically, no obvious metastatic disease noted. <Electronically signed by Randy Wheeler > 08/26/20 [id number]
--- NOTE | 2020-08-26 15:25 | REP ---
INDICATION: UROTHELIAL CA COMPARISON: 05/06/2020, 01/11/2020 TECHNIQUE: Axial noncontrast images from the lung bases to the pubic symphysis with coronal and sagittal reformations. This CT examination was performed using the following dose reduction techniques: Automated exposure control, adjustment of mA and/or kv according to the patient's size, and use of iterative reconstruction technique. FINDINGS: Liver, spleen, pancreas, gallbladder, bilateral adrenal glands and left kidney appeared normal for noncontrast evaluation. Right kidney demonstrates stable atrophic appearance without perinephric stranding or hydroureteronephrosis. Previously noted right ureteral stent has been removed. Previously noted retroperitoneal/periaortic and pericaval adenopathy has significantly improved with lymph nodes now measuring up to approximately 8 mm. Current examination demonstrates mildly prominent bilateral inguinal lymph nodes measuring up to 16 mm which are otherwise nonspecific in appearance. The enteric system is without obstruction or acute inflammatory process. Normal terminal ileum and appendix are identified in the right lower quadrant. Scattered colonic and sigmoid diverticula noted without acute diverticulitis. Pelvis demonstrates relatively normal appearance of the bladder and age-appropriate uterus/adnexa. No pelvic fluid No ascites. No free air. Atherosclerotic changes to the aorta and vasculature noted without aneurysm. Musculoskeletal structures demonstrate degenerative changes without acute osseous abnormality. IMPRESSION: 1. Chronic atrophic appearance of the right kidney. Previous right ureteral stent has been removed. No perinephric or periureteral stranding. No hydroureteronephrosis. 2. Previously noted retroperitoneal/periaortic and pericaval lymph nodes have essentially resolved currently measuring no greater than 8 mm. 3. No further acute process appreciated. <Electronically signed by Randy Wheeler > 08/26/20 2003
== END ==
LOC: M RAD 13:19
PROVIDERS: ATTEND Internal Medicine Medical Oncology
DX: C68.0 Malignant neoplasm of urethra (principal)
CPT/HCPCS: 71250; 74176; Q9963

== ENCOUNTER → 2020-10-18 | Outpatient (CLI) | payer MEDICARE ==
[~2020-10-18] MED LIST changes: -GASTROGRAFIN SOLUTION 30ML (Q9963) As Ordered ONE; -ISOVUE-370 76% 100ML VIAL As Ordered ONE; +LISI10TA22 PO; -LISI10TA4 PO
--- NOTE | 2020-10-18 14:15 | REP ---
INDICATION: UROTHELIA CARCINOMA. COMPARISON: 08/07/2019 FINDINGS: Multiple ultrasonographic images of the right kidney show the right kidney to measure 7.6 x 3.8 x 3.1 cm.. The renal cortical echotexture is increased. There is renal cortical thinning. There are no masses. There is poor corticomedullary differentiation. There is no hydronephrosis. There are no perinephric fluid collections. Multiple ultrasonographic images of the left kidney show the left kidney to measure 10.7 x 5.6 x 4.7 cm.. The renal cortical echotexture is unremarkable. There are no masses. There is good corticomedullary differentiation. There is no hydronephrosis. There are no perinephric fluid collections. IMPRESSION: 1. Right renal atrophy as described above. <Electronically signed by Elías Cheung > 10/18/20 [id number]
== END ==
LOC: M RAD 12:51
PROVIDERS: ATTEND Urology
DX: N26.1 Atrophy of kidney (terminal) (principal); C68.9 Malignant neoplasm of urinary organ, unspecified

== ENCOUNTER → 2020-11-06 | Outpatient (REF) | payer MEDICARE | LOC: M SMT 13:48 | PROVIDERS: ATTEND Specialist | DX: C68.9 Malignant neoplasm of urinary organ, unspecified (principal) | CPT/HCPCS: 52000; 88108; G0463 ==

== ENCOUNTER → 2020-11-25 | Outpatient (CLI) | payer MEDICARE ==
--- NOTE | 2020-11-25 08:55 | REP ---
INDICATION: METASTATIC BLADDER CA. COMPARISON: Comparison CT studies August 26, 2020 and January 11, 2020.. TECHNIQUE: Helical scanning is acquired. 3 mm axial images are generated. Coronal and sagittal MPR and coronal MIP images are generated. FINDINGS: Preliminary tipple worker view is unremarkable. There is no evidence of pleural or pericardial effusion. No hilar or mediastinal mass or adenopathy is observed. There is multifocal vascular calcification. Right-sided Chhqgi-[id number] catheter is seen terminating in the superior vena cava. There are granulomatous lymph node calcifications in the left hilus unchanged. There is chronic lingular fibrosis and/or atelectasis again seen unchanged from the January 2020 study and the D August 2020 study. No infiltrate, mass, or new pulmonary nodule is appreciated. Bone window settings show no bony destructive lesion. No extra thoracic mass or adenopathy is appreciated. IMPRESSION: No active cardiopulmonary disease. Right-sided [id number] catheter. Vascular calcification. <Electronically signed by Griffin Vazquez > 11/25/20 [id number]
--- NOTE | 2020-11-25 09:04 | REP ---
INDICATION: METASTATIC BLADDER CA COMPARISON: Comparison CT studies are from 06 May 2020 and 26 August 2020.. TECHNIQUE: Helical scanning is acquired in 4 mm axial images were reformatted. Coronal and sagittal MPR images were generated and reviewed. FINDINGS: Preliminary digital in classroom tutor radiograph shows a normal bowel gas pattern. The liver and the spleen are normal in size homogeneous in texture. No abnormality is noted in the pancreas or the gallbladder. Normal adrenal glands are observed. An atrophic right kidney is again seen unchanged. No hydronephrosis is noted on either side. No retroperitoneal mass or adenopathy is observed. A a short normal appearing appendix is seen in the right lower quadrant. There is 1 inguinal lymph node in each groin which appears little larger than on previous studies. On the left this node measures 1.3 x 1.5 cm and on the right it measures 1.1 x 1.6 cm. These nodes are larger than on previous scans. This should be correlated clinically. No uterine or ovarian abnormality is appreciated. The left ovary sits somewhat high in the pelvis and is unchanged. The right ovary is not well seen. Postoperative changes are seen in the anterior abdominal wall. No abdominal wall defect is seen. No bony destructive lesion is seen. IMPRESSION: There are 2 equivocal inguinal lymph nodes, 1 on each side. These are larger than on prior scans. Not quite pathologic by size criteria. Otherwise no active disease. <Electronically signed by Griffin Vazquez > 11/25/20 0900
== END ==
LOC: M RAD 07:01
PROVIDERS: ATTEND Internal Medicine Medical Oncology
DX: C68.0 Malignant neoplasm of urethra (principal); C79.11 Secondary malignant neoplasm of bladder; R59.0 Localized enlarged lymph nodes; Z95.9 Presence of cardiac and vascular implant and graft, unspecified

== ENCOUNTER → 2021-02-19 | Outpatient (CLI) | payer MEDICARE ==
[~2021-02-19] MED LIST changes: +GASTROGRAFIN SOLUTION 30ML (Q9963) As Ordered ONE; +HYDR-3363 PO
--- NOTE | 2021-02-19 12:17 | REP ---
INDICATION: METASTATIC UROTHELIA CA COMPARISON: Multiple the latest 11/25/2020 TECHNIQUE: Limited noncontrast enhanced standard helical technique FINDINGS: The mediastinum and pulmonary mingo are unchanged. There is no evidence of a mass or adenopathy. There are no pleural or pericardial effusions. There is no significant change in appearance of the imaged osseous structures. Evaluation of the lung bell shows stable appearing biapical pleuroparenchymal scarring and a stable lingular density. No new abnormal nodules, masses, or opacities have developed. IMPRESSION: Stable CT examination of the chest. There is no evidence of acute disease. <Electronically signed by Elías Cheung > 02/19/21 [id number]
--- NOTE | 2021-02-19 12:30 | REP ---
INDICATION: METASTATIC UROTHELIA CA. COMPARISON: Multiple the latest 11/25/2020 TECHNIQUE: Limited noncontrast enhanced standard helical technique. Bowel preparatory contrast was administered prior to the exam. FINDINGS: Limited evaluation of the solid intra-organs and gallbladder show no gross abnormalities or significant changes from the prior exam. Limited evaluation of the pancreas, adrenal glands, and kidneys show no significant changes from the prior exam. There is right renal atrophic change status quo. There is no significant change in appearance of the abdominal aorta or para-regions. There is no significant change in appearance of the bowel loops or the mesenteries. There is no free fluid or free air. The lymph node seen in the inguinal region bilaterally on the prior exam are unchanged in size, shape, and overall density. Bone window technique throughout the examination shows no significant change in appearance of the imaged osseous structures. IMPRESSION: Stable CT findings as described above. There is no evidence of acute disease. <Electronically signed by Elías Cheung > 02/19/21 [id number]
== END ==
LOC: M RAD 09:35
PROVIDERS: ATTEND Internal Medicine Medical Oncology
DX: C68.0 Malignant neoplasm of urethra (principal); R91.8 Other nonspecific abnormal finding of lung field; N26.1 Atrophy of kidney (terminal)
CPT/HCPCS: 71250; 74176; Q9963

== ENCOUNTER → 2021-06-14 | Outpatient (REF) | payer MEDICARE ==
[~2021-06-14] MED LIST changes: -GASTROGRAFIN SOLUTION 30ML (Q9963) As Ordered ONE
[2021-06-14 12:23] LABS: APPEARANCE, URINE CLEAR (CLEAR); BACTERIA, URINE AUTO NEGATIVE (NEGATIVE); BILIRUBIN, URINE AUTO NEGATIVE (NEGATIVE); BLOOD, URINE BLOOD 1+ (NEGATIVE); COLOR, URINE YELLOW (YELLOW); GLUCOSE, URINE (UA) AUTO NEGATIVE (NEGATIVE); KETONE, URINE AUTO NEGATIVE (NEGATIVE); LEUKOCYTE ESTERASE, URINE AUTO NEGATIVE (NEGATIVE); MUCUS, URINE SMALL (NEGATIVE); NITRITE, URINE AUTO NEGATIVE (NEGATIVE); PROTEIN, URINE AUTO NEGATIVE (NEGATIVE); RBC, URINE AUTO 6 /HPF (0-3); SPECIFIC GRAVITY URINE AUTO 1.013 (1.002-1.035); SQUAMOUS EPITHELIAL CELL UR AU 0 /HPF (0-6); UROBILINOGEN, URINE AUTO 0.2 mg/dL (0.0-2.0); WBC, URINE AUTO 1 /HPF (0-3)
== END ==
LOC: M LAB REF 10:00
PROVIDERS: ATTEND Physician Assistant Medical
DX: B37.3 Candidiasis of vulva and vagina (principal); R30.0 Dysuria

== ENCOUNTER → 2021-06-16 | Outpatient (CLI) | payer MEDICARE ==
[~2021-06-16] MED LIST changes: +ISOVUE-370 76% 100ML VIAL As Ordered ONE
--- NOTE | 2021-06-16 12:02 | REP ---
INDICATION: MET UROTHELILA CA. COMPARISON: 02/19/2021 the latest prior with other priors as well TECHNIQUE: Standard helical technique without the administration of intravenous or oral bowel preparatory contrast. This causes exam limitations. FINDINGS: Limited evaluation of the solid intra-abdominal organs and gallbladder show no gross abnormalities or significant changes from the prior exam. Limited evaluation of the pancreas and adrenal glands show no gross abnormalities or significant changes from the prior exam. There is right renal atrophy versus hypoplasia status quo. The left kidney is again seen to be within normal limits. There is no evidence of nephroureterolithiasis, hydronephrosis, or hydroureter. There is no change in appearance of the abdominal aorta or para-aortic regions. The bowel loops and the mesenteries are essentially unchanged showing no evidence of an abnormality. There is no evidence of free fluid or free air. Bone window technique throughout the examination shows no significant change in appearance of the osseous structures compared to the prior exams. Spinal degenerative changes are again noted with air densities in the L4-5 and L5-S1 disc spaces consistent with vacuum phenomena from degenerative disc disease. IMPRESSION: There is no evidence of acute disease or significant change compared to the prior exam as described above. <Electronically signed by Elías Cheung > 06/16/21 [id number]
--- NOTE | 2021-06-16 12:06 | REP ---
INDICATION: MET UROTHELILA CA COMPARISON: Multiple latest 02/19/2021 also without contrast TECHNIQUE: Standard helical technique without intravenous contrast administration. This causes exam limitations. FINDINGS: Limited evaluation of the mediastinum and pulmonary mingo shows no significant change from the prior exam. There is no evidence of a mass or adenopathy. There are no pleural or pericardial effusions. There is no significant change in appearance of the imaged osseous structures. Evaluation of the lung bell shows biapical pleuroparenchymal scarring status quo. No new abnormal nodules, masses, or opacities have developed. IMPRESSION: Stable CT findings as described above. There is no evidence of acute disease. <Electronically signed by Elías Cheung > 06/16/21 [id number]
== END ==
LOC: M RAD 11:12
PROVIDERS: ATTEND Internal Medicine Medical Oncology
DX: C68.0 Malignant neoplasm of urethra (principal); N26.1 Atrophy of kidney (terminal)

== ENCOUNTER → 2021-08-12 | Outpatient (REF) | payer MEDICARE ==
[~2021-08-12] MED LIST changes: -ISOVUE-370 76% 100ML VIAL As Ordered ONE
[2021-08-12 12:14] LABS: BASO # 0.1 10^3/uL (0.0-0.2); BASO % 0.8 % (0.0-1.0); EOS # 0.3 10^3/uL (0.0-0.5); EOS % 4.3 % (0.0-3.0); HEMATOCRIT 39.1 % (36.0-47.0); HEMOGLOBIN 12.3 g/dl (12.0-15.5); LYMPH # 1.9 10^3/uL (1.5-5.0); LYMPH % 25.4 % (24.0-44.0); MEAN CORPUSCULAR HEMOGLOBIN 29.2 pg (27.0-33.0); MEAN CORPUSCULAR HGB CONC 31.5 g/dl (32.0-36.5); MEAN CORPUSCULAR VOLUME 92.9 fl (80.0-96.0); MONO # 0.8 10^3/uL (0.0-0.8); NEUTROPHILS # 4.5 10^3/uL (1.5-8.5); NEUTROPHILS % 59.1 % (36.0-66.0); PLATELET COUNT, AUTOMATED 304 10^3/uL (150-450); RED BLOOD COUNT 4.21 10^6/uL (4.00-5.40); WHITE BLOOD COUNT 7.6 10^3/uL (4.0-10.0)
[2021-08-12 13:16] LABS: ALBUMIN 3.6 GM/DL (3.2-5.2); BILIRUBIN,TOTAL 0.4 MG/DL (0.2-1.0); CALCIUM LEVEL 9.4 MG/DL (8.8-10.2); CHOLESTEROL RISK RATIO 3.833 (<5); CREATININE FOR GFR 1.46 MG/DL (0.55-1.30); FREE T4 1.3 NG/DL (0.76-1.46); GLOMERULAR FILTRATION RATE 37.2 (>39); POTASSIUM SERUM 5.1 MEQ/L (3.5-5.1); THYROID STIMULATING HORMONE 2.9 uIU/ML (0.358-3.740); TOTAL PROTEIN 7.3 GM/DL (6.4-8.2)
== END ==
LOC: M SFHCADAM 08:04
PROVIDERS: ATTEND Physician Assistant Medical
DX: E78.2 Mixed hyperlipidemia (principal); E03.9 Hypothyroidism, unspecified; F41.1 Generalized anxiety disorder; E66.09 Other obesity due to excess calories; I10 Essential (primary) hypertension; C68.9 Malignant neoplasm of urinary organ, unspecified

== ENCOUNTER → 2021-09-04 | Outpatient (REF) | payer MEDICARE | LOC: M SFHCADAM 12:31 | PROVIDERS: ATTEND Physician Assistant Medical | DX: N94.9 Unspecified condition associated with female genital organs and menstrual cycle (principal) ==

== ENCOUNTER → 2021-10-29 | Outpatient (REF) | payer MEDICARE ==
[~2021-10-29] MED LIST changes: +EUTH50TA PO; +ONDA-84 PO; -ONDA8TAB10 PO; -PROC10TA4 PO; +PROC10TA5 PO
[2021-10-29 19:36] LABS: BACTERIA, URINE AUTO NEGATIVE (NEGATIVE); MUCUS, URINE SMALL (NEGATIVE); RBC, URINE AUTO 3 /HPF (0-3); SQUAMOUS EPITHELIAL CELL UR AU 0 /HPF (0-6); WBC, URINE AUTO 0 /HPF (0-3)
== END ==
LOC: M SMT 16:41
PROVIDERS: ATTEND Specialist
DX: C68.9 Malignant neoplasm of urinary organ, unspecified (principal); Z79.899 Other long term (current) drug therapy

== ENCOUNTER → 2021-11-27 | Outpatient (REF) | payer MEDICARE ==
[2021-11-27 13:51] LABS: BASO # 0.1 10^3/uL (0.0-0.2); BASO % 0.6 % (0.0-1.0); EOS # 0.2 10^3/uL (0.0-0.5); EOS % 2.2 % (0.0-3.0); HEMATOCRIT 35.7 % (36.0-47.0); HEMOGLOBIN 11.2 g/dl (12.0-15.5); LYMPH # 1.6 10^3/uL (1.5-5.0); LYMPH % 18.3 % (24.0-44.0); MEAN CORPUSCULAR HEMOGLOBIN 28.2 pg (27.0-33.0); MEAN CORPUSCULAR HGB CONC 31.4 g/dl (32.0-36.5); MEAN CORPUSCULAR VOLUME 89.9 fl (80.0-96.0); MONO # 0.5 10^3/uL (0.0-0.8); MONO % 6.1 % (2.0-8.0); NEUTROPHILS # 6.4 10^3/uL (1.5-8.5); PLATELET COUNT, AUTOMATED 506 10^3/uL (150-450); RED BLOOD COUNT 3.97 10^6/uL (4.00-5.40); WHITE BLOOD COUNT 8.9 10^3/uL (4.0-10.0)
[2021-11-27 14:30] LABS: ALBUMIN 3.5 GM/DL (3.2-5.2); BILIRUBIN,TOTAL 0.4 MG/DL (0.2-1.0); CALCIUM LEVEL 9.5 MG/DL (8.8-10.2); CREATININE FOR GFR 1.3 MG/DL (0.55-1.30); GLOMERULAR FILTRATION RATE 42.5 (>39); POTASSIUM SERUM 4.5 MEQ/L (3.5-5.1); TOTAL PROTEIN 7.3 GM/DL (6.4-8.2)
== END ==
LOC: M SFHCADAM 09:39
PROVIDERS: ATTEND Family Medicine
DX: R06.01 Orthopnea (principal); R09.81 Nasal congestion

== ENCOUNTER → 2021-11-27 | Outpatient (CLI) | payer MEDICARE | LOC: M ADAMS 09:39 | PROVIDERS: ATTEND Family Medicine | DX: J44.9 Chronic obstructive pulmonary disease, unspecified (principal); R91.8 Other nonspecific abnormal finding of lung field; R06.01 Orthopnea; R09.81 Nasal congestion ==

== ENCOUNTER → 2021-12-19 | Outpatient (CLI) | payer MEDICARE | LOC: M CARPUL 12:52 | PROVIDERS: ATTEND Family Medicine | DX: R06.00 Dyspnea, unspecified (principal) ==

== ENCOUNTER → 2021-12-22 | Outpatient (CLI) | payer MEDICARE ==
[~2021-12-22] MED LIST changes: +GASTROGRAFIN SOLUTION 30ML (Q9963) As Ordered ONE; +ISOVUE-370 76% 100ML VIAL As Ordered ONE
== END ==
LOC: M RAD 07:47
PROVIDERS: ATTEND Internal Medicine Medical Oncology
DX: C68.0 Malignant neoplasm of urethra (principal); J43.9 Emphysema, unspecified; I70.0 Atherosclerosis of aorta; I25.10 Atherosclerotic heart disease of native coronary artery without angina pectoris; Z95.828 Presence of other vascular implants and grafts; N26.1 Atrophy of kidney (terminal)
CPT/HCPCS: 71260; 74177; J1642; Q9963; Q9967

== ENCOUNTER → 2022-01-20 | Outpatient (POV) | payer MEDICARE ==
[~2022-01-20] VITALS: Ht 172.7 cm; Wt 86.3 kg
[~2022-01-20] MED LIST changes: +ALBU8.5H INH; -GASTROGRAFIN SOLUTION 30ML (Q9963) As Ordered ONE; -ISOVUE-370 76% 100ML VIAL As Ordered ONE
[2022-01-20 10:10] VITALS: BP 190/96
== END ==
LOC: M IRPOV 10:04
PROVIDERS: ATTEND Radiology Diagnostic Radiology
DX: Z45.2 Encounter for adjustment and management of vascular access device (principal); Z92.21 Personal history of antineoplastic chemotherapy

== ENCOUNTER → 2022-01-21 | Outpatient (CLI) | payer MEDICARE ==
[~2022-01-21] MED LIST changes: +LIDOCAINE 1% MDV 20ML VIAL As Ordered ONE; +MIDAZOLAM INJ 2MG/2ML VIAL (J2250 PER 1MG) As Ordered ONE; +NS 1,000 ML IV SCH; +ceFAZolin 2 GM/D5W 50 ML IV BAG (J0690 PER 500MG) As Ordered ONE; +ceFAZolin SOD 2 GM in IV 1 EA IV ONE; +diphenhydrAMINE 50MG/ML VIAL (J1200) As Ordered ONE; +fentaNYL 100 MCG/2 ML INJECTION As Ordered ONE
[2022-01-21 12:30] VITALS: BP 176/5
== END ==
LOC: M IRPRO 08:55
PROVIDERS: ATTEND Radiology Diagnostic Radiology
DX: Z45.2 Encounter for adjustment and management of vascular access device (principal); C68.9 Malignant neoplasm of urinary organ, unspecified; Z92.21 Personal history of antineoplastic chemotherapy
CPT/HCPCS: 36590; 99152; J0690; J1200; J1644; J2250; J3010

== ENCOUNTER → 2022-02-12 | Outpatient (REF) | payer MEDICARE ==
[~2022-02-12] MED LIST changes: -LIDOCAINE 1% MDV 20ML VIAL As Ordered ONE; -MIDAZOLAM INJ 2MG/2ML VIAL (J2250 PER 1MG) As Ordered ONE; -NS 1,000 ML IV SCH; -ceFAZolin 2 GM/D5W 50 ML IV BAG (J0690 PER 500MG) As Ordered ONE; -ceFAZolin SOD 2 GM in IV 1 EA IV ONE; -diphenhydrAMINE 50MG/ML VIAL (J1200) As Ordered ONE; -fentaNYL 100 MCG/2 ML INJECTION As Ordered ONE
[2022-02-12 13:36] LABS: BASO % 0.5 % (0.0-1.0); EOS # 0.3 10^3/uL (0.0-0.5); EOS % 3.6 % (0.0-3.0); HEMATOCRIT 38.5 % (36.0-47.0); HEMOGLOBIN 12.1 g/dl (12.0-15.5); LYMPH # 2.1 10^3/uL (1.5-5.0); LYMPH % 25.9 % (24.0-44.0); MEAN CORPUSCULAR HEMOGLOBIN 29.4 pg (27.0-33.0); MEAN CORPUSCULAR HGB CONC 31.4 g/dl (32.0-36.5); MEAN CORPUSCULAR VOLUME 93.4 fl (80.0-96.0); MONO # 0.7 10^3/uL (0.0-0.8); MONO % 8.4 % (2.0-8.0); NEUTROPHILS # 4.9 10^3/uL (1.5-8.5); NEUTROPHILS % 61.3 % (36.0-66.0); PLATELET COUNT, AUTOMATED 276 10^3/uL (150-450); RED BLOOD COUNT 4.12 10^6/uL (4.00-5.40)
[2022-02-12 13:51] LABS: HEMOGLOBIN A1c 5.6 %
[2022-02-12 14:21] LABS: ALBUMIN 3.7 GM/DL (3.2-5.2); BILIRUBIN,TOTAL 0.5 MG/DL (0.2-1.0); CALCIUM LEVEL 9.2 MG/DL (8.8-10.2); CHOLESTEROL RISK RATIO 2.635 (<5); CREATININE FOR GFR 1.45 MG/DL (0.55-1.30); GLOMERULAR FILTRATION RATE 37.4 (>39); POTASSIUM SERUM 4.3 MEQ/L (3.5-5.1); THYROID STIMULATING HORMONE 1.21 uIU/ML (0.358-3.740); TOTAL PROTEIN 7.2 GM/DL (6.4-8.2)
== END ==
LOC: M SFHCADAM 08:03
PROVIDERS: ATTEND Physician Assistant Medical
DX: I10 Essential (primary) hypertension (principal); F41.1 Generalized anxiety disorder; E78.2 Mixed hyperlipidemia

== ENCOUNTER → 2022-04-21 | Outpatient (CLI) | payer MEDICARE ==
[2022-04-21 15:36] LABS: BASO % 0.4 % (0.0-1.0); EOS # 0.1 10^3/uL (0.0-0.5); HEMOGLOBIN 12.8 g/dl (12.0-15.5); LYMPH # 2.1 10^3/uL (1.5-5.0); LYMPH % 20.9 % (24.0-44.0); MEAN CORPUSCULAR HEMOGLOBIN 28.8 pg (27.0-33.0); MEAN CORPUSCULAR VOLUME 90.1 fl (80.0-96.0); MONO # 0.7 10^3/uL (0.0-0.8); NEUTROPHILS # 7.1 10^3/uL (1.5-8.5); NEUTROPHILS % 70.5 % (36.0-66.0); PLATELET COUNT, AUTOMATED 313 10^3/uL (150-450); RED BLOOD COUNT 4.44 10^6/uL (4.00-5.40); WHITE BLOOD COUNT 10.1 10^3/uL (4.0-10.0)
[2022-04-21 16:06] LABS: ALBUMIN 4.2 GM/DL (3.2-5.2); THYROID STIMULATING HORMONE 1.72 uIU/ML (0.358-3.740); TOTAL PROTEIN 7.6 GM/DL (6.4-8.2)
== END ==
LOC: M PLALAB 13:27
PROVIDERS: ATTEND Internal Medicine Hematology
DX: R60.0 Localized edema (principal); E78.2 Mixed hyperlipidemia; E03.9 Hypothyroidism, unspecified; E66.09 Other obesity due to excess calories

== ENCOUNTER → 2022-04-22 | Outpatient (CLI) | payer MEDICARE | LOC: M RAD 12:50 | PROVIDERS: ATTEND Internal Medicine Hematology | DX: R60.0 Localized edema (principal) ==

== ENCOUNTER → 2022-05-05 | Outpatient (REF) | payer MEDICARE ==
[2022-05-05 17:31] LABS: BACTERIA, URINE AUTO NEGATIVE (NEGATIVE); RBC, URINE AUTO 0 /HPF (0-3); SQUAMOUS EPITHELIAL CELL UR AU 2 /HPF (0-6); WBC, URINE AUTO 6 /HPF (0-3)
== END ==
LOC: M SMT 16:59
PROVIDERS: ATTEND Specialist
DX: C68.9 Malignant neoplasm of urinary organ, unspecified (principal); Z79.899 Other long term (current) drug therapy

== ENCOUNTER → 2022-08-31 | Outpatient (REF) | payer MEDICARE ==
[~2022-08-31] MED LIST changes: +FURO20TA2 PO
[2022-08-31 13:51] LABS: ALBUMIN 3.6 G/DL (3.2-5.2)
[2022-08-31 13:55] LABS: BILIRUBIN,TOTAL 0.5 MG/DL (0.3-1.2); HDL CHOLESTEROL 56.4 MG/DL (>40)
[2022-08-31 13:56] LABS: CALCIUM LEVEL 9.2 MG/DL (8.3-10.6); TOTAL PROTEIN 6.8 G/DL (5.7-8.2)
[2022-08-31 13:58] LABS: CHOLESTEROL RISK RATIO 2.81 (<5); CREATININE FOR GFR 1.3 MG/DL (0.55-1.30); GLOMERULAR FILTRATION RATE 42.4 (>39); LDL CHOLESTEROL 87.6 MG/DL (<100)
[2022-08-31 14:00] LABS: POTASSIUM SERUM 4.4 MMOL/L (3.5-5.1)
== END ==
LOC: M SFHCADAM 07:49
PROVIDERS: ATTEND Physician Assistant Medical
DX: E78.2 Mixed hyperlipidemia (principal); E03.9 Hypothyroidism, unspecified; E66.09 Other obesity due to excess calories

== ENCOUNTER → 2022-12-07 | Outpatient (CLI) | payer MEDICARE ==
[~2022-12-07] MED LIST changes: +SIMV-254 PO; -ZOCO40TA PO
== END ==
LOC: M RAD 12:27
PROVIDERS: ATTEND Internal Medicine Medical Oncology
DX: C68.0 Malignant neoplasm of urethra (principal); N26.1 Atrophy of kidney (terminal); I25.10 Atherosclerotic heart disease of native coronary artery without angina pectoris; I77.810 Thoracic aortic ectasia

== ENCOUNTER → 2023-03-10 | Outpatient (REF) | payer MEDICARE ==
[2023-03-10 13:07] LABS: THYROID STIMULATING HORMONE 2.776 uIU/ML (0.55-4.78); TOTAL 25(OH) VITAMIN D 23.4 NG/ML (20.0-100.0)
[2023-03-10 13:11] LABS: BASO % 0.6 % (0.0-1.0); EOS # 0.2 10^3/uL (0.0-0.5); EOS % 3.2 % (0.0-3.0); HEMATOCRIT 39.2 % (36.0-47.0); HEMOGLOBIN 12.3 g/dl (12.0-15.5); LYMPH # 1.9 10^3/uL (1.5-5.0); LYMPH % 28.5 % (24.0-44.0); MEAN CORPUSCULAR HEMOGLOBIN 29.5 pg (27.0-33.0); MEAN CORPUSCULAR HGB CONC 31.4 g/dl (32.0-36.5); MONO # 0.7 10^3/uL (0.0-0.8); MONO % 10.7 % (2.0-8.0); NEUTROPHILS # 3.7 10^3/uL (1.5-8.5); NEUTROPHILS % 56.7 % (36.0-66.0); PLATELET COUNT, AUTOMATED 308 10^3/uL (150-450); RED BLOOD COUNT 4.17 10^6/uL (4.00-5.40); WHITE BLOOD COUNT 6.6 10^3/uL (4.0-10.0)
[2023-03-10 13:50] LABS: ALBUMIN 3.9 G/DL (3.2-5.2); BILIRUBIN,TOTAL 0.5 MG/DL (0.3-1.2); CALCIUM LEVEL 8.7 MG/DL (8.3-10.6); CHOLESTEROL RISK RATIO 3.8 (<5); CREATININE FOR GFR 1.59 MG/DL (0.55-1.30); GLOMERULAR FILTRATION RATE 33.5 (>39); LDL CHOLESTEROL 146.4 MG/DL (<100); POTASSIUM SERUM 4.3 MMOL/L (3.5-5.1)
== END ==
LOC: M SFHCADAM 08:41
PROVIDERS: ATTEND Physician Assistant Medical
DX: I10 Essential (primary) hypertension (principal); E78.2 Mixed hyperlipidemia; E03.9 Hypothyroidism, unspecified; J41.0 Simple chronic bronchitis; Z79.899 Other long term (current) drug therapy

== ENCOUNTER → 2023-06-10 | Outpatient (REF) | payer MEDICARE ==
[2023-06-10 13:46] LABS: ALBUMIN 3.7 G/DL (3.2-5.2); BILIRUBIN,TOTAL 0.5 MG/DL (0.3-1.2); CALCIUM LEVEL 9.5 MG/DL (8.3-10.6); CREATININE FOR GFR 1.5 MG/DL (0.55-1.30); GLOMERULAR FILTRATION RATE 35.8 (>39); POTASSIUM SERUM 4.6 MMOL/L (3.5-5.1)
[2023-06-10 13:47] LABS: BASO # 0.1 10^3/uL (0.0-0.2); BASO % 0.7 % (0.0-1.0); EOS # 0.3 10^3/uL (0.0-0.5); EOS % 3.6 % (0.0-3.0); HEMATOCRIT 37.7 % (36.0-47.0); HEMOGLOBIN 12.1 g/dl (12.0-15.5); LYMPH # 2.1 10^3/uL (1.5-5.0); LYMPH % 27.5 % (24.0-44.0); MEAN CORPUSCULAR HGB CONC 32.1 g/dl (32.0-36.5); MEAN CORPUSCULAR VOLUME 93.5 fl (80.0-96.0); MONO # 0.6 10^3/uL (0.0-0.8); MONO % 8.2 % (2.0-8.0); NEUTROPHILS # 4.6 10^3/uL (1.5-8.5); NEUTROPHILS % 59.5 % (36.0-66.0); PLATELET COUNT, AUTOMATED 286 10^3/uL (150-450); RED BLOOD COUNT 4.03 10^6/uL (4.00-5.40); WHITE BLOOD COUNT 7.7 10^3/uL (4.0-10.0)
== END ==
LOC: M LABDRWAD 12:46
PROVIDERS: ATTEND Internal Medicine Medical Oncology
DX: C68.0 Malignant neoplasm of urethra (principal)

== ENCOUNTER → 2023-08-30 | Outpatient (REF) | payer MEDICARE ==
[2023-08-30 14:17] LABS: HEMOGLOBIN A1c 5.5 % (4.0-6.0)
[2023-08-30 14:22] LABS: ALBUMIN 3.7 G/DL (3.2-5.2); BILIRUBIN,TOTAL 0.6 MG/DL (0.3-1.2); CALCIUM LEVEL 9.6 MG/DL (8.3-10.6); CHOLESTEROL RISK RATIO 3.2 (<5); CREATININE FOR GFR 1.59 MG/DL (0.55-1.30); FREE T4 1.18 NG/DL (0.89-1.76); GLOMERULAR FILTRATION RATE 33.5 (>39); HDL CHOLESTEROL 66.2 MG/DL (>40); LDL CHOLESTEROL 124.6 MG/DL (<100); NON-HDL-C 145.8 MG/DL; POTASSIUM SERUM 4.6 MMOL/L (3.5-5.1); THYROID STIMULATING HORMONE 3.499 uIU/ML (0.55-4.78); TOTAL 25(OH) VITAMIN D 24.4 NG/ML (20.0-100.0)
== END ==
LOC: M SFHCADAM 07:58
PROVIDERS: ATTEND Physician Assistant Medical
DX: I10 Essential (primary) hypertension (principal); E78.2 Mixed hyperlipidemia; E03.9 Hypothyroidism, unspecified; J41.0 Simple chronic bronchitis; Z79.899 Other long term (current) drug therapy

== ENCOUNTER → 2023-09-09 | Outpatient (REF) | payer MEDICARE ==
[2023-09-09 15:29] LABS: CREATININE, URINE 38.2 MG/DL
== END ==
LOC: M SFHCADAM 12:41
PROVIDERS: ATTEND Physician Assistant Medical
DX: I10 Essential (primary) hypertension (principal); E78.2 Mixed hyperlipidemia; E03.9 Hypothyroidism, unspecified; J41.0 Simple chronic bronchitis
CPT/HCPCS: 82043; G0463

== ENCOUNTER → 2024-03-08 | Outpatient (REF) | payer MEDICARE ==
[~2024-03-08] MED LIST changes: +LEXA1TAB PO
[2024-03-08 13:27] LABS: BASO # 0.1 10^3/uL (0.0-0.2); BASO % 0.8 % (0.0-1.0); EOS # 0.3 10^3/uL (0.0-0.5); EOS % 3.5 % (0.0-3.0); HEMATOCRIT 39.5 % (36.0-47.0); HEMOGLOBIN 12.5 g/dl (12.0-15.5); LYMPH # 1.9 10^3/uL (1.5-5.0); LYMPH % 24.9 % (24.0-44.0); MEAN CORPUSCULAR HEMOGLOBIN 30.1 pg (27.0-33.0); MEAN CORPUSCULAR HGB CONC 31.6 g/dl (32.0-36.5); MEAN CORPUSCULAR VOLUME 95.2 fl (80.0-96.0); MONO # 0.7 10^3/uL (0.0-0.8); MONO % 9.2 % (2.0-8.0); NEUTROPHILS # 4.6 10^3/uL (1.5-8.5); NEUTROPHILS % 61.2 % (36.0-66.0); PLATELET COUNT, AUTOMATED 262 10^3/uL (150-450); RED BLOOD COUNT 4.15 10^6/uL (4.00-5.40); WHITE BLOOD COUNT 7.5 10^3/uL (4.0-10.0)
[2024-03-08 14:05] LABS: ALBUMIN 3.7 G/DL (3.2-5.2); BILIRUBIN,TOTAL 0.6 MG/DL (0.3-1.2); CALCIUM LEVEL 9.6 MG/DL (8.3-10.6); CHOLESTEROL RISK RATIO 3.87 (<5); CREATININE FOR GFR 1.22 MG/DL (0.55-1.30); FREE T4 1.15 NG/DL (0.89-1.76); GLOMERULAR FILTRATION RATE 45.4 (>39); HDL CHOLESTEROL 59.9 MG/DL (>40); LDL CHOLESTEROL 148.3 MG/DL (<100); NON-HDL-C 172.1 MG/DL; POTASSIUM SERUM 4.4 MMOL/L (3.5-5.1); THYROID STIMULATING HORMONE 2.508 uIU/ML (0.55-4.78); TOTAL 25(OH) VITAMIN D 33.9 NG/ML (20.0-100.0); TOTAL PROTEIN 6.9 G/DL (5.7-8.2)
== END ==
LOC: M SFHCADAM 07:56
PROVIDERS: ATTEND Physician Assistant Medical
DX: E78.2 Mixed hyperlipidemia (principal); I10 Essential (primary) hypertension; E03.9 Hypothyroidism, unspecified; Z79.899 Other long term (current) drug therapy

== ENCOUNTER → 2024-03-16 | Outpatient (CLI) | payer MEDICARE | LOC: M ADAMS 09:32 | PROVIDERS: ATTEND Physician Assistant Medical | DX: M17.11 Unilateral primary osteoarthritis, right knee (principal) ==

== ENCOUNTER → 2024-06-14 | Outpatient (REF) | payer MEDICARE ==
[2024-06-14 13:38] LABS: BASO # 0.1 10^3/uL (0.0-0.2); BASO % 0.7 % (0.0-1.0); EOS # 0.3 10^3/uL (0.0-0.5); EOS % 3.7 % (0.0-3.0); HEMATOCRIT 40.4 % (36.0-47.0); HEMOGLOBIN 12.6 g/dl (12.0-15.5); LYMPH # 2.5 10^3/uL (1.5-5.0); LYMPH % 32.2 % (24.0-44.0); MEAN CORPUSCULAR HEMOGLOBIN 29.5 pg (27.0-33.0); MEAN CORPUSCULAR HGB CONC 31.2 g/dl (32.0-36.5); MEAN CORPUSCULAR VOLUME 94.6 fl (80.0-96.0); MONO # 0.7 10^3/uL (0.0-0.8); MONO % 9.2 % (2.0-8.0); NEUTROPHILS # 4.1 10^3/uL (1.5-8.5); NEUTROPHILS % 53.9 % (36.0-66.0); PLATELET COUNT, AUTOMATED 259 10^3/uL (150-450); RED BLOOD COUNT 4.27 10^6/uL (4.00-5.40); WHITE BLOOD COUNT 7.6 10^3/uL (4.0-10.0)
[2024-06-14 14:07] LABS: ALBUMIN 3.8 G/DL (3.2-5.2); BILIRUBIN,TOTAL 0.5 MG/DL (0.3-1.2); CALCIUM LEVEL 9.8 MG/DL (8.3-10.6); CREATININE FOR GFR 1.31 MG/DL (0.55-1.30); GLOMERULAR FILTRATION RATE 41.8 (>39); POTASSIUM SERUM 4.5 MMOL/L (3.5-5.1); TOTAL PROTEIN 7.3 G/DL (5.7-8.2)
== END ==
LOC: M LABDRWAD 12:54
PROVIDERS: ATTEND Internal Medicine Medical Oncology
DX: C67.9 Malignant neoplasm of bladder, unspecified (principal)

== ENCOUNTER → 2024-09-05 | Outpatient (REF) | payer MEDICARE ==
[2024-09-05 14:07] LABS: BASO # 0.1 10^3/uL (0.0-0.2); BASO % 0.8 % (0.0-1.0); EOS # 0.2 10^3/uL (0.0-0.5); EOS % 3.3 % (0.0-3.0); HEMATOCRIT 35.7 % (36.0-47.0); HEMOGLOBIN 11.3 g/dl (12.0-15.5); LYMPH # 1.9 10^3/uL (1.5-5.0); LYMPH % 30.3 % (24.0-44.0); MEAN CORPUSCULAR HEMOGLOBIN 29.7 pg (27.0-33.0); MEAN CORPUSCULAR HGB CONC 31.7 g/dl (32.0-36.5); MEAN CORPUSCULAR VOLUME 93.7 fl (80.0-96.0); MONO # 0.6 10^3/uL (0.0-0.8); MONO % 9.7 % (2.0-8.0); NEUTROPHILS # 3.5 10^3/uL (1.5-8.5); NEUTROPHILS % 55.6 % (36.0-66.0); PLATELET COUNT, AUTOMATED 284 10^3/uL (150-450); RED BLOOD COUNT 3.81 10^6/uL (4.00-5.40); WHITE BLOOD COUNT 6.4 10^3/uL (4.0-10.0)
[2024-09-05 14:42] LABS: THYROID STIMULATING HORMONE 4.595 uIU/ML (0.55-4.78)
[2024-09-05 14:45] LABS: ALBUMIN 3.6 G/DL (3.2-5.2); BILIRUBIN,TOTAL 0.6 MG/DL (0.3-1.2); CALCIUM LEVEL 9.8 MG/DL (8.3-10.6); CHOLESTEROL RISK RATIO 2.96 (<5); CREATININE FOR GFR 1.31 MG/DL (0.55-1.30); GLOMERULAR FILTRATION RATE 41.8 (>39); HDL CHOLESTEROL 66.2 MG/DL (>40); LDL CHOLESTEROL 111.8 MG/DL (<100); NON-HDL-C 129.8 MG/DL
== END ==
LOC: M SFHCADAM 07:55
PROVIDERS: ATTEND Physician Assistant Medical
DX: E78.2 Mixed hyperlipidemia (principal); I11.0 Hypertensive heart disease with heart failure; E03.9 Hypothyroidism, unspecified

== ENCOUNTER → 2024-09-12 | Outpatient (REF) | payer MEDICARE ==
[2024-09-12 14:29] LABS: PERCENT SATURATION 33.3 % (13.2-45.0)
[2024-09-12 14:31] LABS: FERRITIN 44.5 NG/ML (7.3-270.7)
[2024-09-12 14:32] LABS: FOLATE 23.4 NG/ML (>5.4)
== END ==
LOC: M SFHCADAM 10:10
PROVIDERS: ATTEND Physician Assistant Medical
DX: D64.9 Anemia, unspecified (principal)

== ENCOUNTER → 2024-09-12 | Outpatient (CLI) | payer MEDICARE | LOC: M ADAMS 10:19 | PROVIDERS: ATTEND Physician Assistant Medical | DX: M51.372 Other intervertebral disc degeneration, lumbosacral region with discogenic back pain and lower extremity pain (principal); M25.551 Pain in right hip; M54.32 Sciatica, left side ==

== ENCOUNTER → 2024-12-08 | Outpatient (REF) | payer MEDICARE ==
[2024-12-08 14:02] LABS: BASO % 0.5 % (0.0-1.0); EOS # 0.3 10^3/uL (0.0-0.5); EOS % 3.3 % (0.0-3.0); HEMATOCRIT 38.9 % (36.0-47.0); LYMPH # 1.9 10^3/uL (1.5-5.0); LYMPH % 24.3 % (24.0-44.0); MEAN CORPUSCULAR HEMOGLOBIN 29.6 pg (27.0-33.0); MEAN CORPUSCULAR HGB CONC 30.8 g/dl (32.0-36.5); MONO # 0.6 10^3/uL (0.0-0.8); MONO % 7.9 % (2.0-8.0); NEUTROPHILS # 4.9 10^3/uL (1.5-8.5); NEUTROPHILS % 63.7 % (36.0-66.0); PLATELET COUNT, AUTOMATED 295 10^3/uL (150-450); RED BLOOD COUNT 4.05 10^6/uL (4.00-5.40); WHITE BLOOD COUNT 7.6 10^3/uL (4.0-10.0)
[2024-12-08 14:23] LABS: ALBUMIN 3.7 G/DL (3.2-5.2); BILIRUBIN,TOTAL 0.5 MG/DL (0.3-1.2); CALCIUM LEVEL 9.5 MG/DL (8.3-10.6); CREATININE FOR GFR 1.29 MG/DL (0.55-1.30); GLOMERULAR FILTRATION RATE 42.6 (>39); POTASSIUM SERUM 4.7 MMOL/L (3.5-5.1); TOTAL PROTEIN 7.3 G/DL (5.7-8.2)
== END ==
LOC: M LABDRWAD 13:10
PROVIDERS: ATTEND Internal Medicine Medical Oncology
DX: C67.9 Malignant neoplasm of bladder, unspecified (principal)

== ENCOUNTER → 2024-12-15 | Outpatient (CLI) | payer MEDICARE | LOC: M RAD 11:11 | PROVIDERS: ATTEND Internal Medicine Hematology & Oncology | DX: E78.2 Mixed hyperlipidemia (principal); I10 Essential (primary) hypertension; E03.9 Hypothyroidism, unspecified; I50.32 Chronic diastolic (congestive) heart failure; K80.20 Calculus of gallbladder without cholecystitis without obstruction ==

== ENCOUNTER → 2025-08-29 | Outpatient (REF) | payer MEDICARE ==
[2025-08-29 14:09] LABS: ALT/SGPT 22.0 U/L (7.0-40); AST/SGOT 23.0 U/L (<34); CALCIUM LEVEL 8.8 MG/DL (8.3-10.6); CARBON DIOXIDE LEVEL 30.0 MMOL/L (20-31); CHLORIDE LEVEL 105.0 MMOL/L (98-107); CHOLESTEROL LEVEL 241.0 MG/DL (<200); CHOLESTEROL RISK RATIO 4.28 (<5); CREATININE FOR GFR 1.32 MG/DL (0.55-1.30); GLOMERULAR FILTRATION RATE 41.1 (>39); LDL CHOLESTEROL 160.9 MG/DL (<100); NON-HDL-C 184.7 MG/DL; POTASSIUM SERUM 4.8 MMOL/L (3.5-5.1); SODIUM LEVEL 141.0 MMOL/L (136-145); TRIGLYCERIDES LEVEL 119.0 MG/DL (<150)
[2025-08-29 14:12] LABS: TOTAL 25(OH) VITAMIN D 39.7 NG/ML (20.0-100.0)
[2025-08-29 14:13] LABS: FREE T4 1.1 NG/DL (0.89-1.76)
[2025-08-29 14:57] LABS: ESTIMATED AVERAGE GLUCOSE 105.0 MG/DL (60-110)
== END ==
LOC: M SFHCADAM 08:10
PROVIDERS: ATTEND Physician Assistant Medical
DX: I13.0 Hypertensive heart and chronic kidney disease with heart failure and stage 1 through stage 4 chronic kidney disease, or unspecified chronic kidney disease (principal); E03.9 Hypothyroidism, unspecified; I50.32 Chronic diastolic (congestive) heart failure; N18.32 Chronic kidney disease, stage 3b; Z79.899 Other long term (current) drug therapy

== ENCOUNTER → 2025-09-06 | Outpatient (REF) | payer MEDICARE ==
[2025-09-06 13:20] LABS: APPEARANCE, URINE HAZY (CLEAR); BACTERIA, URINE AUTO 1+ (NEGATIVE); BILIRUBIN, URINE AUTO NEGATIVE (NEGATIVE); BLOOD, URINE BLOOD 1+ (NEGATIVE); GLUCOSE, URINE (UA) AUTO NEGATIVE (NEGATIVE); KETONE, URINE AUTO NEGATIVE (NEGATIVE); LEUKOCYTE ESTERASE, URINE AUTO 3+ (NEGATIVE); NITRITE, URINE AUTO NEGATIVE (NEGATIVE); PROTEIN, URINE AUTO NEGATIVE (NEGATIVE); RBC, URINE AUTO 4 /HPF (0-3); SPECIFIC GRAVITY URINE AUTO 1.009 (1.002-1.035); SQUAMOUS EPITHELIAL CELL UR AU 1 /HPF (0-6); TRANSITIONAL EPITHELIAL AUTO 1 /HPF; UROBILINOGEN, URINE AUTO 0.2 mg/dL (0.0-2.0); WBC, URINE AUTO 10 /HPF (0-3)
== END ==
LOC: M SFHCADAM 12:46
PROVIDERS: ATTEND Physician Assistant Medical
DX: R30.0 Dysuria (principal)

== ENCOUNTER → 2025-09-19 | Outpatient (REF) | payer MEDICARE ==
[2025-09-19 13:50] LABS: APPEARANCE, URINE CLEAR (CLEAR); BACTERIA, URINE AUTO NEGATIVE (NEGATIVE); BILIRUBIN, URINE AUTO NEGATIVE (NEGATIVE); BLOOD, URINE BLOOD 1+ (NEGATIVE); GLUCOSE, URINE (UA) AUTO NEGATIVE (NEGATIVE); KETONE, URINE AUTO NEGATIVE (NEGATIVE); LEUKOCYTE ESTERASE, URINE AUTO 2+ (NEGATIVE); NITRITE, URINE AUTO NEGATIVE (NEGATIVE); PROTEIN, URINE AUTO NEGATIVE (NEGATIVE); RBC, URINE AUTO 2 /HPF (0-3); SPECIFIC GRAVITY URINE AUTO 1.011 (1.002-1.035); SQUAMOUS EPITHELIAL CELL UR AU 0 /HPF (0-6); UROBILINOGEN, URINE AUTO 0.2 mg/dL (0.0-2.0); WBC, URINE AUTO 5 /HPF (0-3)
== END ==
LOC: M SFHCADAM 12:50
PROVIDERS: ATTEND Family Medicine
DX: R30.0 Dysuria (principal)